=== PATIENT | female | born 1975 | race Hispanic/Latino ===

== ENCOUNTER 2022-07-30 09:20 | Emergency (ER) | payer SELFPAY ==
[~2022-07-30] VITALS: Ht 157.5 cm; Wt 47.6 kg
[2022-07-30] MEDS ORDERED: HYDROCODONE/APAP 5MG-325MG TAB PO ONE (13:15)
[2022-07-30] MEDS ORDERED: ULTRAM 50MG50 MG PO (13:20)
== END 2022-07-30 13:32 | disposition home or self-care (01) ==
LOC: ER 09:30
DX: R10.31 Right lower quadrant pain (principal); K40.90 Unilateral inguinal hernia, without obstruction or gangrene, not specified as recurrent; R50.9 Fever, unspecified
CPT/HCPCS: 74176; 99283